=== PATIENT | male | born 1980 | race Caucasian/White ===

== ENCOUNTER 2018-03-23 23:14 | Emergency (ER) | payer SELFPAY ==
[~2018-03-23] VITALS: Ht 167.6 cm; Wt 85.0 kg
[2018-03-23 23:35] VITALS: BP 136/83
== END 2018-03-24 01:14 | disposition left against medical advice (07) ==
LOC: ER 23:14
DX: R51 Headache (principal); Z53.21 Procedure and treatment not carried out due to patient leaving prior to being seen by health care provider

== ENCOUNTER 2018-03-27 22:22 | Emergency (ER) | payer MEDICAID ==
[~2018-03-27] VITALS: Ht 165.1 cm; Wt 83.0 kg
[2018-03-27] MEDS ORDERED: KETOROLAC 30MG/ML VIAL IV STA (23:03)
[2018-03-27] MEDS ORDERED: SODIUM CHLORIDE 0.9% 1,000 ML IV ONE (23:03)
[2018-03-27] MEDS ORDERED: METOCLOPRAMIDE HCL 10MG/2ML VIAL IV ONE (23:15)
[2018-03-28 01:08] VITALS: BP 115/74
== END 2018-03-28 01:10 | disposition home or self-care (01) ==
LOC: ER 23:29
DX: R51 Headache (principal)
CPT/HCPCS: 96361; 96374; 96375; 99283; J1885; J2765; J7030

== ENCOUNTER 2018-08-17 09:07 | Emergency (ER) | payer MEDICAID ==
[~2018-08-17] VITALS: Ht 157.5 cm; Wt 75.0 kg
[2018-08-17 13:06] LABS: CLARITY URINE CLEAR (CLEAR); COLOR URINE YELLOW (YELLOW); KETONES URINE TRACE (NEGATIVE); LEUKOCYTE ESTERASE URINE NEGATIVE (NEGATIVE); NITRITE URINE NEGATIVE (NEGATIVE); OCCULT BLOOD URINE TRACE (NEGATIVE); PH URINE 5.5 (4.5-8.0); PROTEIN URINE NEGATIVE (NEGATIVE); UROBILINOGEN URINE 0.2 E.U./dL (0.2-1.0)
[2018-08-17 14:15] VITALS: BP 142/88
== END 2018-08-17 14:16 | disposition home or self-care (01) ==
LOC: ER 09:07
DX: N48.1 Balanitis (principal); E78.00 Pure hypercholesterolemia, unspecified
CPT/HCPCS: 99283